=== PATIENT | female | born 1935 | race Caucasian/White ===

== ENCOUNTER 2020-03-13 09:15 | Observation (INO) | payer OTHER ==
[~2020-03-13] VITALS: Ht 172.7 cm; Wt 50.5 kg
[2020-03-13 10:34] LABS: Influenza A, PCR Negative (NEGATIVE); Influenza B, PCR Negative (NEGATIVE); Resp Syncytial Virus, PCR Negative (NEGATIVE); SARS-Cov-2 (COVID-19) PCR, MMC Positive (NEGATIVE)
[2020-03-13 10:47] LABS: BASOPHILS ABSOLUTE AUTO 0.05 K/mm3 (0.00-0.23); BASOPHILS PERCENT AUTO 1 % (0-2); EOSINOPHILS PERCENT AUTO 0 % (0-6); Hematocrit 43.1 % (33.0-51.0); Hemoglobin 14.3 g/dL (11.5-16.0); IMMATURE GRAN ABSOLUTE AUTO 0.03 K/mm3 (0.00-0.10); IMMATURE GRAN PERCENT AUTO 0 % (0-1); LYMPHOCYTES ABSOLUTE AUTO 1.13 K/mm3 (0.84-5.20); LYMPHOCYTES PERCENT AUTO 15 % (21-46); MONOCYTES ABSOLUTE AUTO 0.88 K/mm3 (0.16-1.47); MONOCYTES PERCENT AUTO 12 % (4-13); Mean Corpuscular HGB Conc 33.2 g/dL (31.5-36.5); Mean Corpuscular Volume 96 fL (80-100); Mean Platelet Volume 10.1 fL (9.1-12.4); NEUTROPHILS ABSOLUTE AUTO 5.58 K/mm3 (1.96-9.15); NEUTROPHILS PERCENT AUTO 73 % (41-73); Platelet Count 166 K/mm3 (150-400); RDW Coefficient Variation 12.4 % (11.7-14.2); RDW Standard Deviation 44.8 fL (35.1-46.3); Red Blood Cell Count 4.47 M/mm3 (3.80-5.20); White Blood Cell Count 7.67 K/mm3 (4.00-11.30)
[2020-03-13 10:54] LABS: Source, Urine Clean Catch
[2020-03-13 10:56] LABS: Appearance, Urine Clear (Clear); Bilirubin, Urine Neg (Neg); Blood, Urine 1+ (Neg); Color, Urine Yellow (P-Yellow); Glucose Qualitative, Urine Neg (Neg); Ketones, Urine Neg (Neg); Leukocyte Esterase, Urine 2+ (Neg); Nitrite, Urine Neg (Neg); Protein, Urine 1+ (Neg); Urobilinogen, Urine NORM (Normal)
[2020-03-13 11:09] LABS: Albumin, Blood 3.3 g/dL (3.4-5.0); Bilirubin, Total 0.3 mg/dL (0.1-1.0); Bun/Creatinine Ratio 14.7 (12.0-20.0); Calcium, Blood 8.7 mg/dL (8.5-10.1); Creatinine, Blood 0.95 mg/dL (0.40-1.00); Globulin, Blood 3.4 g/dL (2.2-4.0); Potassium, Blood 3.3 mmol/L (3.5-5.5); Total Protein, Blood 6.7 g/dL (6.4-8.2); Troponin I 0.101 ng/mL (0.000-0.040)
[2020-03-13 11:26] LABS: Amorphous Light (0-Heavy); Bacteria Few /hpf; Red Blood Cells, Urine 0-2 /hpf (0-2); Squamous Epithelial Cells Rare /hpf (Few)
[2020-03-13 11:46] LABS: Free Thyroxine 1.11 ng/dL (0.70-1.60); Magnesium, Blood 2.2 mg/dL (1.6-2.4); Thyroid Stimulating Hormone 3.14 uIU/mL (0.360-4.800)
--- NOTE | 2020-03-13 14:01 | NUR ---
PT ARRIVED TO THE MEDICAL FLOOR VIA [facility] FROM THE ER, A/OX3, PLEASANT AND COOPERATIVE, THE PT DENIED ANY SOB, PAIN OR NAUSEA AT THIS TIME, THE PT WAS ORIENTED TO THE ROOM LAYOUT AND CALL SYSTEM, THE PT IS STEADY ON HER FEET, CALL LIGHT IN REACH
--- NOTE | 2020-03-13 16:16 | NUR ---
PT IS A/OX3, PLEASANT AND COOPERATIVE, THE PT IS UP IND IN HER ROOM, THE PT APPEARS TO BE BREATHING EASILY AT THIS TIME ON RA, THE PT DENIES ANY CHEST PAIN OR ANY OTHER PAIN AT THIS TIME, THE PT DENIED NAUSEA AND TOLERATED A SNACK WELL, TELE IN PLACE AND OPERATING, CALL LIGHT IN REACH, DR. MACKENZIE WAS IN TO SEE THE PT, WILL CONTINUE TO MONITOR AND ASSESS FOR CHANGES
--- NOTE | 2020-03-14 05:24 | NUR ---
SHIFT SUMMARY: VSS. AFEB. 02 98% ON RA. PT DENIES COUGH, DENIES CHEST PAIN OR TIGHTNESS. NSR 83 PER TELE. DENIES NAUSEA. UP INDEPENDENTLY IN ROOM. COMPLETED 1L NSR PER ORDERS. TROPNIN TRENDING DOWN, AM RESULT PENDING. NO ACUTE CHANGES OVERNIGHT. WILL CONT TO MONITOR.
[2020-03-14 05:43] LABS: BASOPHILS ABSOLUTE AUTO 0.03 K/mm3 (0.00-0.23); BASOPHILS PERCENT AUTO 1 % (0-2); EOSINOPHILS ABSOLUTE AUTO 0.04 K/mm3 (0.00-0.68); EOSINOPHILS PERCENT AUTO 1 % (0-6); Hematocrit 37.1 % (33.0-51.0); Hemoglobin 12.2 g/dL (11.5-16.0); IMMATURE GRAN PERCENT AUTO 0 % (0-1); LYMPHOCYTES ABSOLUTE AUTO 1.64 K/mm3 (0.84-5.20); LYMPHOCYTES PERCENT AUTO 33 % (21-46); MONOCYTES ABSOLUTE AUTO 0.57 K/mm3 (0.16-1.47); MONOCYTES PERCENT AUTO 11 % (4-13); Mean Corpuscular HGB 31.8 pg (26.0-34.0); Mean Corpuscular HGB Conc 32.9 g/dL (31.5-36.5); Mean Corpuscular Volume 97 fL (80-100); Mean Platelet Volume 10.1 fL (9.1-12.4); NEUTROPHILS ABSOLUTE AUTO 2.77 K/mm3 (1.96-9.15); NEUTROPHILS PERCENT AUTO 55 % (41-73); Platelet Count 177 K/mm3 (150-400); RDW Coefficient Variation 12.5 % (11.7-14.2); RDW Standard Deviation 43.8 fL (35.1-46.3); Red Blood Cell Count 3.84 M/mm3 (3.80-5.20); White Blood Cell Count 5.05 K/mm3 (4.00-11.30)
[2020-03-14 06:19] LABS: Alanine Aminotransfer (ALT/SGP 22 U/L (12-78); Alk Phos 92 U/L (50-136); Anion Gap 5 mmol/L (6-16); Aspartate Aminotrans (AST/SGOT 23 U/L (12-37); Bilirubin, Total 0.2 mg/dL (0.1-1.0); Blood Urea Nitrogen 20 mg/dL (8-24); Bun/Creatinine Ratio 22.8 (12.0-20.0); CO2, Blood 27 mmol/L (21-32); Calcium, Blood 8.2 mg/dL (8.5-10.1); Chloride, Blood 110 mmol/L (98-108); Creatinine, Blood 0.88 mg/dL (0.40-1.00); Globulin, Blood 2.9 g/dL (2.2-4.0); Glomerular Filtration Rate >60 (60-); Glucose, Blood 95 mg/dL (70-99); Potassium, Blood 3.8 mmol/L (3.5-5.5); Sodium, Blood 142 mmol/L (136-145); Total Protein, Blood 5.9 g/dL (6.4-8.2); Troponin I 0.101 ng/mL (0.000-0.040)
--- NOTE | 2020-03-14 06:35 | NUR ---
CALL TO HOSPITALIST / TROPONIN INCREASED: SPOKE WITH DR. HENDRICKSON RE: PT TROPONIN INCREASED BACK TO 0.101. NO TELE EVENTS. PT CONT TO DENY CHEST PAIN. NO NEW ORDERS.
--- NOTE | 2020-03-14 08:49 | NUR ---
AM PT IS A/OX3 THIS AM, PLEASANT AND COOPERATIVE, THE PT IS UP IND IN HER ROOM, THE PT THIS AM DENIES ANY C/P, N/V, OR SOB, TELE REPRTS THAT THE PT IS IN SR, CALL LIGHT IN REACH, VSS, WILL CONTINUE TO MONITOR AND ASSESS FOR CHANGES
--- NOTE | 2020-03-14 16:42 | NUR ---
PT IS A/OX3, PLEASANT AND COOPERATIVE, THE PT IS UP IND IN HER ROOM, PT APPEARS TO BE BREATHING EASILY ON RA, THE PT DENIED ANY C/P, N/V, SOB T/O THE DAY, PT REMAINS IN SINUS RYTHM PER TELE AT THIS TIME, CALL LIGHT IN REACH, WILL CONTINUE TO MONITOR AND ASSESS FOR CHANGES
--- NOTE | 2020-03-14 17:33 | NUR ---
ECHOCARDIOGRAM COMPLETE
--- NOTE | 2020-03-15 06:38 | NUR ---
SHIFT SUMMARY: VSS. AFEB. 02 SAT 98% ON RA. NO COUGHING. RESPS REG, EVEN, NON-LABORED. LSCTA. DENIES NAUSEA. DENIES LIGHTHEADEDNESS/DIZZINESS. PT CURRENTLY NPO W/SIPS OF WATER ONLY IN PREPARATION FOR STRESS TEST TODAY. NO CARDIAC TELEMETRY EVENTS OVERNIGHT. NSR, 67. WILL CONT TO MONITOR.
--- NOTE | 2020-03-15 10:59 | NUR ---
PT'S STRESS TEST TO BE TWO DAY PROTOCOL, NOT ONE DAY. PT AWARE AND SHE IS STATING THAT SHE IS NOT "SICK" AND JUST WANTS TO GO HOME. VERY INSISTANT. INFORMED DR MCAKENZIE. SHE WILL ENTER DISCHARGE ORDERS, PT TO DC AFTER ZIO PATCH PLACED.
--- NOTE | 2020-03-15 15:42 | NUR ---
DISCHARGE INSTRUCTIONS AND FOLLOW UP APPOINTMENTS REVIEWED WITH PT. COURTNEY CRUZ SCHEDULING WILL CONTACT PT AND SCHEDULE 2ND PART OF ZIO PATCH. PT VERBALLY EXPRESSED UNDERSTANDING OF ALL INSTRUCTIONS THAT SHE RECEIVED. TELE BOX REMOVED AND RETURNED TO PCU. ESCORTED OUT VIA W/C BY ADELITA
--- NOTE | 2020-03-15 17:01 | NUR ---
Per admit trigger, I met with Mrs. Rivera to offer information about ACP. She was in process of discharge, but took an Advanced Directive packet to discuss with family.
== END 2020-03-15 14:01 | disposition home or self-care (01) ==
LOC: ER 09:15 → MEDS 09:16
PROVIDERS: Physician Assistant; ADMIT Internal Medicine
DX: U07.1 COVID-19 (principal); E86.0 Dehydration; I48.0 Paroxysmal atrial fibrillation; R77.8 Other specified abnormalities of plasma proteins; E87.6 Hypokalemia; R55 Syncope and collapse
CPT/HCPCS: 0241U; 36415; 36416; 70450; 71045; 80053; 81001; 83735; 84145; 84439; 84443; 84484; 85025; 87086; 93005; 93010; 93246; 93306; 99285-25; A9270; G0378; J7030